=== PATIENT | female | born 1995 ===

== ENCOUNTER 2019-12-11 08:30 | Emergency (ER) | payer OTHER ==
[~2019-12-11] VITALS: Ht 162.6 cm; Wt 63.6 kg
[2019-12-11 12:15] VITALS: BP 125/76
== END 2019-12-11 12:46 | disposition home or self-care (01) ==
LOC: EMS 08:38
DX: Z03.818 Encounter for observation for suspected exposure to other biological agents ruled out (principal); R03.0 Elevated blood-pressure reading, without diagnosis of hypertension